=== PATIENT | female | born 1940 | race Caucasian/White ===

== ENCOUNTER 2020-07-21 13:12 | Outpatient (CLI) | payer MEDICARE, SELFPAY ==
--- NOTE | ~2020-07-21 | XR_ITS ---
XR cervical spine 4-5V DATE: 07/21/2020 14:42 INDICATION: Cervical pain, radiculopathy TECHNIQUE: AP, open-mouth, odontoid, lateral views COMPARISON: None FINDINGS: C1 and C2 are normally aligned and the odontoid process is intact. There is severe degenerative disc disease and almost 3 mm retrolisthesis at C3-4. There is approximately 2 mm anterolisthesis at C5-6. No fracture or dislocation or locked facet or prevertebral soft tissue swelling. There is degenerative change at the apophyseal joints throughout the cervical spine. IMPRESSION: Severe degenerative disc disease and approximately 3 mm retrolisthesis at C3-4 2 mm anterolisthesis at C5-6 Reviewed, dictated and finalized at location A. IMPRESSION: Severe degenerative disc disease and approximately 3 mm retrolisthe sis at C3-4 2 mm anterolisthesis at C5-6
== END 2020-07-21 13:13 | disposition home or self-care (01) ==
PROVIDERS: PCP Family Medicine; Visit Provider Family Medicine
DX: M47.22 Other spondylosis with radiculopathy, cervical region (principal); M50.31 Other cervical disc degeneration, high cervical region; M43.12 Spondylolisthesis, cervical region
CPT/HCPCS: 72050; 73030

== ENCOUNTER 2020-07-21 17:05 | Outpatient (CLI) | payer MEDICARE, SELFPAY ==
--- NOTE | ~2020-07-21 | XR_ITS ---
XR shoulder LT min 2V DATE: 07/21/2020 17:31 INDICATION: Left shoulder pain. No injury. TECHNIQUE: 4 views COMPARISON: None FINDINGS: No fracture or dislocation, periosteal reaction or bone destruction or abnormal soft tissue calcification. There is aortic arch calcification and mild aortic unfolding. IMPRESSION: No significant abnormality of the left shoulder Reviewed, dictated and finalized at location A.
== END 2020-07-21 17:06 | disposition home or self-care (01) ==
PROVIDERS: PCP Family Medicine; Visit Provider Physician Assistant
DX: M25.512 Pain in left shoulder (principal)
CPT/HCPCS: 73030

== ENCOUNTER 2020-10-21 11:33 | Outpatient (CLI) | payer MEDICARE, SELFPAY ==
--- NOTE | ~2020-10-21 | NM_ITS ---
EXAMINATION: NM parathyroid imaging w spect DATE: 10/21/2020 15:14 INDICATION: Hypercalcemia. TECHNIQUE: 19.9 mCi Tc99m sestamibi was administered intravenously. Anterior images of the neck were obtained immediately and at 2 hours. SPECT images of the neck were obtained. COMPARISON: None. FINDINGS: There is no focus of persistent activity in the area of the thyroid or mediastinum to sugge st parathyroid adenoma. IMPRESSION: 1. No evidence of a parathyroid adenoma. Reviewed, dictated and finalized at location B. 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
== END 2020-10-21 11:34 | disposition home or self-care (01) ==
PROVIDERS: PCP Family Medicine; Visit Provider Family Medicine
DX: E83.52 Hypercalcemia (principal)
CPT/HCPCS: 78071; A9500

== ENCOUNTER 2020-10-24 14:59 | Outpatient (CLI) | payer MEDICARE, SELFPAY ==
--- NOTE | ~2020-10-24 | XR_ITS ---
EXAMINATION: XR chest 2V 10/24/2020 15:26 INDICATION: Hypercalcemia. PROCEDURE: PA and lateral views of the chest COMPARISON: No prior studies for comparison. FINDINGS: The lungs are clear. The cardiomediastinal silhouette is within normal limits. There are no pleural effusions. There is no pneumothorax suspected. IMPRESSION: 1: NO ACUTE CARDIOPULMONARY DISEASE. Reviewed, dictated and finalized at location A. 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
== END 2020-10-24 15:00 | disposition home or self-care (01) ==
PROVIDERS: PCP Family Medicine; Visit Provider Family Medicine
DX: E83.52 Hypercalcemia (principal)
CPT/HCPCS: 71046

== ENCOUNTER → 2021-04-11 11:19 | Outpatient (CLI) | payer MEDICARE, SELFPAY ==
--- NOTE | ~2021-04-11 | XR_ITS ---
XR chest 2V DATE: 04/11/2021 11:56 INDICATION: Hypercalcemia TECHNIQUE: 2 views COMPARISON: 10/24/2020 PA and lateral chest FINDINGS: Heart size is normal. There is thoracic and abdominal aortic calcification. There is no hil ar or mediastinal enlargement. Bilateral hyperinflation. No pulmonary infiltrate or consolidation, pleural effusion or pulmonary vas cular congestion or pneumothorax is detected. IMPRESSION: Bilateral hyperinflation; otherwise no active cardiopulmonary disease Reviewed, dictated and finalized at location A. IMPRESSION: Bilateral hyperinflation; otherwise no active cardiopulmonary disea se
== END ==
PROVIDERS: PCP Family Medicine; Visit Provider Family Medicine
DX: E83.52 Hypercalcemia (principal)
CPT/HCPCS: 71046

== ENCOUNTER → 2021-05-31 10:43 | Outpatient (CLI) | payer MEDICARE, SELFPAY ==
--- NOTE | ~2021-05-31 | CT_ITS ---
EXAMINATION: CT abdomen pelvis w con DATE: 05/31/2021 11:21 INDICATION: Abnormal weight loss TECHNIQUE: Computed tomography (CT) of the abdomen and pelvis was performed with 100 cc Omnipaque 350 intravenous contrast. Automated exposure control and iterative reconstruction technique were employe d. Exam dose: 334.31 mGy-cm total exam DLP. COMPARISON: None. FINDINGS: Mild bilateral dependent lower lobe atelectasis Normal heart size. No pericardial or pleural effusion. The liver, spleen, pancreas, gallbladder, bile ducts, pancreatic duct, and adrenal glands are unremar kable. 6 mm lower pole left renal cyst. No urinary tract calculus or hydroureteronephrosis. Heterogeneous density and multiple calcifications in the uterus consistent with uterine fibroids, inc luding 2.3 cm right and 1.6 cm left probably calcified serosal uterine fibroids. There are numerous diverticula of left and right colon; no CT evidence of diverticulitis is noted. No bowel obstruction, bowel wall thickening, pneumatosis or intraperitoneal free air is detected. There is extensive calcification of the abdominal aorta but no aneurysm. No intraperitoneal or retrop eritoneal or pelvic mass lesion or adenopathy or ascites. Grade 1 anterolisthesis at L4-5 due to degenerative change at the apophyseal joints. No suspicious osteolytic or osteoblastic lesions are noted. IMPRESSION: 6 mm lower pole left renal cyst Multiple uterine fibroid Diverticulosis of left and right colon; no CT evidence of diverticulitis or bowel obstruction Reviewed, dictated and finalized at Location A. Reviewed, dictated and finalized at location A. IMPRESSION: 6 mm lower pole left renal cyst Multiple uterine fibroid Diverticulosis of left and right colon; no CT evidence of diverticulitis or bow el obstruction
[2021-05-31 11:04] LABS: Estimated Glomerular Filt Rate 43
== END ==
PROVIDERS: PCP Family Medicine; Visit Provider Family Medicine
DX: R63.4 Abnormal weight loss (principal)
CPT/HCPCS: 74177; Q9967

== ENCOUNTER 2022-05-06 17:26 | Observation (INO) | payer MEDICARE, SELFPAY ==
[2022-05-06] VITALS (15 sets, daily range): BP systolic 152–185; BP diastolic 62–82; PULSE 59–82; RESP 13–21; TEMP 36.1–36.6; O2SAT 98–100; BMI 20.8
--- NOTE | ~2022-05-06 | CT_ITS ---
EXAMINATION: CT brain wo con DATE: 05/06/2022 18:04 INDICATION: fall . TECHNIQUE: Computed tomography (CT) of the head was performed without intravenous contrast. The mA wa s adjusted according to patient size. Iterative reconstruction technique was employed. The dose-lengt h product was 529.67 mGy-cm. COMPARISON: None FINDINGS: No acute intracranial hemorrhage or extra-axial fluid collection. Prominent CSF density bifrontal ext ra-axial spaces, likely secondary to parenchymal volume loss and settling. No hydrocephalus, mass, or herniation. No acute ischemic infarct. Unremarkable dural venous sinus attenuation. No acute osseous abnormality. The aerated spaces are clear. Moderate-severe atrophy. Moderate chronic white matter change. Atherosclerotic intracranial calcifica tions. IMPRESSION: No acute intracranial process. Reviewed, dictated and finalized at location K.
--- NOTE | ~2022-05-06 | US_ITS ---
EXAMINATION: US carotid duplex BI DATE: 05/07/2022 10:11 INDICATION: Carotid bruits TECHNIQUE: Grayscale, color Doppler, and pulsed Doppler images of the cervical carotid arteries were obtained. The degree of vessel stenosis is placed in one of the following categories: normal, <50%, 5 0-69%, >=70% but less than near-occlusion, near-occlusion, or total occlusion. Note that percent sten osis relative to normal distal artery lumen diameter is indirectly measured from velocity measurement s as described by Sterling, et al. Radiology 2003; 229:340-346. COMPARISON: None. FINDINGS: RIGHT: The right common carotid artery (CCA) peak systolic velocity (PSV) is 65 cm/s. The right internal car otid artery (ICA) PSV is 71 cm/s. The right ICA end-diastolic velocity (EDV) is 22 cm/s. The right IC A/CCA PSV ratio is 1.1. Grayscale and color Doppler images yield an estimate of <50% diameter reducti on from plaque in the ICA. The external carotid artery (ECA) PSV is 59 cm/s. There is antegrade flow in the right vertebral artery. LEFT: The left CCA PSV is 70 cm/s. The left ICA PSV is 61 cm/s. The left ICA EDV is 15 cm/s. The left ICA/C CA PSV ratio is 0.9. Grayscale and color Doppler images yield an estimate of <50% diameter reduction from plaque in the ICA. The ECA PSV is 84 cm/s. There is antegrade flow in the left vertebral artery. IMPRESSION: 1. <50% stenosis in the right internal carotid artery. 2. <50% stenosis in the left internal carotid artery. Reviewed, dictated and finalized at location A.
--- NOTE | ~2022-05-06 | CT_ITS ---
Patient Name: Patient Name MR#: Patient MRN Accession#: Accession Numbers EXAMINATION: CTA brain carotid DATE: 05/07/2022 18:03 INDICATION: syncope TECHNIQUE: Computed tomographic angiography (CTA) of the head was performed without and with 100 mL O mnipaque-350 intravenous contrast. CTA of the neck was performed with intravenous contrast. The dose- length product was 1605.89 mGy-cm. Maximum intensity projection and volume rendered 3D-reconstruction s were created by the technologist on a separate workstation. COMPARISON: None. FINDINGS: CTA NECK: Aortic arch and proximal great vessels: Moderate arch calcifications, calcified plaque at the bifurca tion of the brachiocephalic artery, and the origin of the left subclavian. Right common carotid, carotid bifurcation, and internal carotid artery: Atherosclerosis-descibe if co mplex features:No significant minimal calcified and noncalcified plaque at the carotid bifurcation.Th ere is 0% stenosis of the proximal right internal carotid artery relative to normal distal artery lum en diameter (NASCET criteria). Left common carotid, carotid bifurcation, and internal carotid artery: Minimal calcified and noncalci fied plaque at the carotid bifurcation.There is 0% stenosis of the proximal left internal carotid art toni relative to normal distal artery lumen diameter (NASCET criteria). Vertebral arteries: Calcified plaque at the origin of the left vertebral artery, without significant stenosis. Vertebral arteries are codominant. Other findings: Severe degenerative disc disease at C3-4, with moderate central canal stenosis. CTA HEAD: No large vessel occlusion, aneurysm, high flow vascular malformation, nidus or extravasation. Atheros clerotic calcification in the cavernous carotids, without significant stenosis. 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 Focal mild and moderate stenoses present in the P2 segment of the right DELIVERY SUPERVISOR. CT brain: No acute large vessel infarct, intracranial hemorrhage, mass, or hydrocephalus. Stable prominent CSF density bifrontal extra-axial fluid collections. Moderate-severe atrophy. Moderate chronic white arline er change. Atherosclerotic intracranial calcifications. Bilateral lens replacements. IMPRESSION: 1. No large vessel occlusion. 2. No significant carotid stenosis. 3. origin of the right DELIVERY SUPERVISOR, with moderate focal stenoses in the P2 segment. Reviewed, dictated and finalized at location K. IMPRESSION: 1. No large vessel occlusion. 2. No significant carotid stenosis. 3. origin of the right DELIVERY SUPERVISOR, with moderate focal stenoses in the P2 segme nt.
--- NOTE | ~2022-05-06 | XR_ITS ---
EXAMINATION: XR chest 1V portable Exam Date/Time: 05/06/2022 17:45 CDT HISTORY: PT OVERHEATED TODAY AND FAINTED,HTN,TIA Comparison: 04/11/2021. RESULT: Lines, tubes, and devices: None. Lungs and pleura: Clear. Cardiomediastinal silhouette: Stable cardiomediastinal silhouette. Other: No acute osseous or upper abdominal finding. IMPRESSION: No acute cardiopulmonary process. Reviewed, dictated and finalized at location K.
--- NOTE | ~2022-05-06 | MR_ITS ---
EXAMINATION: MR brain/brain stem wo/w con DATE: 05/07/2022 17:50 INDICATION: syncope TECHNIQUE: Magnetic resonance imaging (MRI) of the brain and brainstem was performed without and with 12 mL MultiHance intravenous contrast. Sequences included sagittal and axial T1-weighted SE, axial d iffusion-weighted FS EPI ASSET, axial T2*-weighted GRE, axial T2-weighted FLAIR Propeller, and axial T2-weighted Propeller. Postcontrast axial and coronal T1-weighted SE was obtained. Apparent diffusion coefficient (ADC) maps were created. COMPARISON: CT brain 05/06/2022. FINDINGS: No abnormal restricted diffusion to suggest acute ischemic infarct. No MRI evidence of acute hemorrha ge or acute extra-axial collection. Redemonstration of the prominent right bifrontal CSF density extr a-axial spaces, likely secondary to volume loss and settling, or less likely chronic subdural hematom as. Small foci of susceptibility in the left basal ganglia likely related to calcifications. Mild foc i of T2 hyperintensity within the white matter, likely representing chronic small vessel disease. Mod erate atrophy. The ventricles are proportional to brain volume. Basal cisterns are patent. Flow voids are patent. Bilateral lens replacements. Trace left mastoid effusion. IMPRESSION: 1. No acute large vessel infarct. 2. No acute intracranial process. Reviewed, dictated and finalized at location K.
--- NOTE | 2022-05-06 17:41 | ECG_ITS ---
Measurements Intervals [place] Rate: 60 P: 40 MA: 154 QRS: -6 QRSD: 93 T: 10 QT: 434 QTc: 436 Interpretive Statements SINUS RHYTHM POOR R-WAVE PROGRESSION BORDERLINE ECG NO PREVIOUS ECG AVAILABLE FOR COMPARISON Electronically Signed On 05-07-2022 7:16:50 CDT by Raz Dillon M.D.
--- NOTE | 2022-05-06 17:48 | ED.GENADULT ---
HPI - General Adult General Chief complaint: Head Injury <Ken Aquino DO - Last Filed: 05/06/22 19:11> Stated complaint: syncope <Ken Aquino DO - Last Filed: 05/06/22 19:11> Time Seen by Provider: 05/06/22 17:31 <Ken Aquino DO - Last Filed: 05/06/22 19:11> Source: RN notes reviewed <Ken Aquino DO - Last Filed: 05/06/22 19:11> History of Present Illness HPI narrative: Patient presents to emergency department from home for syncope. Patient states that she was at a basketball game standing when she had a syncopal episode. Patient states that she had no symptoms prior to the syncopal episode she denies feeling any chest pain shortness of breath dizziness or any other symptoms patient fell and struck the right side of her head causing laceration right side of head. Patient is unsure of her last tetanus shot. At this time the patient has no complaints outside of her laceration she denies any fevers or chills <Ken Aquino DO - Last Filed: 05/06/22 19:11> Related Data Allergies/adverse reactions: Allergies Allergy/AdvReac Type Severity Reaction Status Date / Time No Known Allergies Allergy Unverified 01/02/22 08:58 <Ken Aquino DO - Last Filed: 05/06/22 19:11> Review of Systems Review of Systems: Gen.: Denies fevers or chills Eyes: Denies eye pain or visual change ENT: Denies congestion Respiratory: Denies shortness of breath or cough CV: See HPI GI: Denies abdominal pain nausea, emesis or diarrhea Musculoskeletal: Denies back pain or muscle pain Neuro: Denies numbness, tingling, weakness or focal weakness Skin: Reports laceration Except as documented, all other systems reviewed and negative <Ken Aquino DO - Last Filed: 05/06/22 19:11> PMFSH Past Medical History Medical History: Medical History Basal cell carcinoma (~01/2020) Carotid artery stenosis (~2014) CKD (chronic kidney disease), stage III History of melanoma (~1999) HTN (hypertension) 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 Lower extremity venous stasis Mild cognitive impairment Osteoarthritis of right knee Tear of meniscus of left knee TIA (transient ischemic attack) (~11/2014) <Ken Aquino DO - Last Filed: 05/06/22 19:11> Surgical History Surgical History: Surgical History History of arthroplasty of left knee (~2011) History of arthroplasty of right knee (~2014) History of delivery (~1967) vertical c-sxn <Ken Aquino DO - Last Filed: 05/06/22 19:11> Social History Social History: Social History Social History: Pt states that she has 3 cup of caffeine (tea) beverage daily; diet coke 1 c/d Smoking status: Never smoker Second hand tobacco smoke exposure: No Alcohol intake: never Substance use: never Substance use type: does not use Gender identity (if verbalized by the patient): Female Sexual Orientation (if Verbalized by the Patient): Straight or Heterosexual <Ken Aquino DO - Last Filed: 05/06/22 19:11> Exam Narrative: APPEARANCE: No acute distress, nontoxic, resting in bed EYES: EOMI HEENT: Normocephalic, 2.5 cm laceration over the right lateral eyebrow that is deep with mild venous bleeding no foreign body seen, the remainder the face is nontender Neck: Supple no midline tenderness palpation full range of motion of the neck without pain RESPIRATORY: No respiratory distress Clear to auscultation bilaterally with no rhonchi wheezing or rales. CARDIOVASCULAR: Regular rate and rhythm without murmurs rubs or gallops. ABDOMINAL: Soft, nontender, nondistended, no rebound or guarding MUSCULOSKELETAl: Moves all extremities. No clubbing, cyanosis or edema. NEURO: Awake and alert x 3( patient knows month but does not know year) following commands, speech normal, no f
--- NOTE | 2022-05-06 17:55 | PC.NURSE ---
pt. to ct
[2022-05-06 17:58] LABS: Basophils Absolute Auto 0.1 K/mm3 (0.0-0.1); Basophils Percent Auto 0.5 % (0.2-1.2); Eosinophils Percent Auto 0.4 % (0-4.4); Hemoglobin 12.6 g/dL (12.0-15.0); Immature Granulocyte Absolute 0.04 K/mm3 (0.00-0.031); Immature Granulocyte Percent A 0.4 % (0-0.5); Lymphocytes Absolute Auto 1.35 K/mm3 (0.9-3.2); Lymphocytes Percent Auto 12.4 % (18.3-44.2); Mean Corpuscular HGB Conc 32.3 g/dl (32-36); Mean Platelet Volume 11.5 fl (7.4-10.4); Monocytes Absolute Auto 0.6 K/mm3 (0.1-0.6); Monocytes Percent Auto 5.3 % (2.6-8.5); Neutrophils Absolute Auto 8.9 K/mm3 (1.3-6.7); Platelet Count Result 250 k/mm3 (150-375); Red Blood Count 3.94 M/mm3 (4.2-5.4); Red Cell Distribution Width 12.1 % (11.5-14.5); White Blood Count 10.9 K/mm3 (4.5-10.0)
[2022-05-06 18:25] LABS: Creatine Kinase 47 U/L (30-135)
[2022-05-06] MEDS: TETANUS,DIPHTHERIA,AC PERTUSSIS ADULT (0.5 ML) BOOSTRIX IM (18:30)
[2022-05-06 18:34] LABS: Appearance Urine Clear (Clear); Bilirubin Urine Negative (Negative); Blood Urine Negative (Negative); Color Urine Yellow (Yellow); Glucose Urine UA Negative (Negative); Ketones Urine Trace mg/dL (Negative); Leukocyte Esterase Ur Negative LEU/UL (Negative); Nitrate Urine Negative (Negative); Protein Urine Negative (Negative); Specific Grav Ur 1.025 (1.001-1.035); Urobilinogen Urine 0.2 mg/dL (<2.0); pH Urine 5.5 (5.0-9.0)
[2022-05-06 18:38] LABS: Troponin I < 0.012 ng/mL (0.000-0.034)
[2022-05-06 18:45] LABS: Alanine Aminotransferase 22 U/L (6-35); Albumin Level 4.5 g/dL (3.5-5.1); Alkaline Phosphatase 101 U/L (38-126); Anion Gap 4 mmol/L (8-16); Aspartate Amino Transferase 32 U/L (14-36); Bilirubin,Total 0.2 mg/dL (0.2-1.3); Blood Urea Nitrogen 23 mg/dL (7-17); Calcium 10.4 mg/dL (8.4-10.2); Carbon Dioxide 27 mmol/L (22-30); Chloride 105 mmol/L (98-107); Estimated CRCL calculation 28 ml/min; Estimated Glomerular Filt Rate 43; Glucose 96 mg/dL (65-110); Potassium 4.6 mmol/L (3.4-5.0); Sodium 136 mmol/L (137-145)
[2022-05-06 18:46] LABS: Mucus Urine Rare /lpf; RBC Urine 0-2 /hpf (0-2); Squamous Epithelial Cell Urine Rare /hpf (Few)
[2022-05-06 19:00] LABS: Add Urine Microscopic? YES
--- NOTE | 2022-05-06 19:00 | PM.IMHP ---
H&P: HPI History of Present Illness Date/Time: 05/06/22 19:00 Chief Complaint: Syncope. Narrative: This is a pleasant 81-year-old female with mild cognitive impairment, hypertension, chronic kidney disease, right carotid stenosis, and history of TIA who presented to the emergency department for evaluation after a syncopal episode. She had a syncopal episode while attending her grandson's indoor basketball game this afternoon. She does not seem to remember what happened and in fact she tells me that she was standing near a wall and she fell back and slid down the wall onto her buttocks. On arrival to the ER, however, she was noted to have trauma to her face and she sustained a laceration to the right forehead which had to be sutured. She does not recall feeling bad today nor does she recall having any prodrome will symptoms prior to the episode. At the time my evaluation she has no complaints and specifically denies headache, visual changes, focal weakness, paresthesias, facial droop, speech disturbances, lightheadedness, dizziness, chest pain, pleuritic pain, palpitations, shortness of breath, nausea, and vomiting. Her only concern is that of having to stay in the hospital for any length of time as she is going to [facility] in a couple of days to visit her grandson. Review of Systems Review of Systems: Twelve systems were reviewed. No recent cold or flu symptoms. No sick contacts. She has been eating and drinking as per usual. No nausea, vomiting, diarrhea, or dysuria. Except as documented, all other systems were reviewed and are negative. [facility] Past Medical History Medical History (Updated 05/06/22 @ 22:17 by Chanelle Rodriguez PA-C) Basal cell carcinoma (01/2020) Carotid artery stenosis (2014) Chronic kidney disease, stage 3 Hypertension Lower extremity venous stasis Melanoma (1999) Mild cognitive impairment Osteoarthritis of right knee Tear of meniscus of left knee Transient ischemic attack (11/2014) Surgical History Surgical History (Updated 05/06/22 @ 22:07 by Chanelle Rodriguez PA-C) History of arthroplasty of left knee (2011) History of arthroplasty of right knee (2014) History of delivery (1967) Family History Family History (Updated 05/06/22 @ 22:09 by Chanelle Rodriguez PA-C) Other No significant family history Social History Social History (Updated 05/06/22 @ 22:13 by Chanelle Rodriguez PA-C) Social History: Surrogate decision maker: Neida Butcher, daughter. Code status: Full code. Smoking status: Never smoker Second hand tobacco smoke exposure: No Alcohol intake: never Substance use: never Substance use type: does not use Spiritual care concerns: No Meds Home Medications and Allergies Home Medications Medication Instructions Recorded Confirmed Type metoprolol succinate 25 mg 25 mg PO DAILY #90 tabs 11/07/21 05/06/22 Rx tablet,extended release 24 hr donepezil 10 mg tablet (Aricept) 10 mg PO QAM 05/06/22 05/06/22 History Allergies Allergy/AdvReac Type Severity Reaction Status Date / Time No Known Allergies Allergy Unverified 01/02/22 08:58 Vital Signs Vital Signs - 24 hr 05/06/22 17:27 05/06/22 18:07 05/06/22 18:08 Temperature 97.9 F Pulse Rate 59 L 66 65 Respiratory Rate 18 Blood Pressure 152/63 H 166/68 H 174/62 H Pulse Oximetry 98 05/06/22 18:10 05/06/22 17:39 05/06/22 17:40 Temperature Pulse Rate 69 63 63 Respiratory Rate 17 19 Blood Pressure 167/82 H 179/63 H Pulse Oximetry 100 100 05/06/22 17:45 05/06/22 18:24 05/06/22 18:30 Temperature Pulse Rate 67 64 66 Respiratory Rate 21 H 17 17 Blood Pressure Pulse Oximetry 100 100 99 05/06/22 18:31 05/06/22 18:35 05/06/22 18:36 Temperature Pulse Rate 67 67 68 Respiratory Rate 17 13 16 Blood Pressure 172/76 H Pulse Oximetry 100 100 100 05/06/22 19:05 05/06/22 20:25 Temperature 97 F L Pulse Rate 67 71 Respiratory Rate 16 16 Blood Pres
[2022-05-06 23:46] LABS: Troponin I < 0.012 ng/mL (0.000-0.034)
[2022-05-07] VITALS (9 sets, daily range): BP systolic 140–153; BP diastolic 47–65; PULSE 59–68; RESP 16–18; TEMP 36.1–36.2; O2SAT 98–100
[2022-05-07 02:30] LABS: Basophils Absolute Auto 0.1 K/mm3 (0.0-0.1); Basophils Percent Auto 0.5 % (0.2-1.2); Eosinophils Absolute Auto 0.1 K/mm3 (0-0.3); Hematocrit 37.5 % (37.0-47.0); Hemoglobin 12.2 g/dL (12.0-15.0); Immature Granulocyte Absolute 0.01 K/mm3 (0.00-0.031); Immature Granulocyte Percent A 0.1 % (0-0.5); Lymphocytes Absolute Auto 2.42 K/mm3 (0.9-3.2); Lymphocytes Percent Auto 25.1 % (18.3-44.2); Mean Corpuscular HGB Conc 32.5 g/dl (32-36); Mean Corpuscular Hemoglobin 31.8 pg (26-34); Mean Corpuscular Volume 97.7 fl (80-100); Mean Platelet Volume 11.1 fl (7.4-10.4); Monocytes Absolute Auto 0.9 K/mm3 (0.1-0.6); Monocytes Percent Auto 9.3 % (2.6-8.5); Neutrophils Absolute Auto 6.2 K/mm3 (1.3-6.7); Platelet Count Result 239 k/mm3 (150-375); Red Blood Count 3.84 M/mm3 (4.2-5.4); Red Cell Distribution Width 12.1 % (11.5-14.5); White Blood Count 9.7 K/mm3 (4.5-10.0)
[2022-05-07 02:40] LABS: Anion Gap 3 mmol/L (8-16); Blood Urea Nitrogen 20 mg/dL (7-17); Calcium 9.9 mg/dL (8.4-10.2); Carbon Dioxide 26 mmol/L (22-30); Chloride 106 mmol/L (98-107); Estimated CRCL calculation 37 ml/min; Estimated Glomerular Filt Rate 53; Glucose 84 mg/dL (65-110); Magnesium 2.2 mg/dL (1.6-2.3); Potassium 4.3 mmol/L (3.4-5.0); Sodium 135 mmol/L (137-145)
[2022-05-07 02:55] LABS: Troponin I < 0.012 ng/mL (0.000-0.034)
[2022-05-07] MEDS: METOPROLOL SUCCINATE EXT REL 25 MG TABCR PO (08:33)
[2022-05-07] MEDS: DONEPEZIL HCL 10 MG TABLET PO (08:33)
--- NOTE | 2022-05-07 15:02 | PM.CNCAR ---
Assessment and Plan Assessment and plan (1) Syncope: Code(s): R55 - Syncope and collapse Status: Acute Plan This is an 81-year-old woman who experienced a syncopal episode yesterday while she was at her son's basketball game. The etiology of this is unknown at this time. She has not had any disturbances of her cardiac rhythm on telemetry and her 12 lead electrocardiogram is unremarkable. Her echocardiogram also shows no structural clues that would reveal an etiology of this. She has not had syncopal episodes previously. She is stable at this time and has an unremarkable cardiovascular exam. I believe she can be discharged for outpatient follow-up. With 1 episode of syncope we typically do not recommend ongoing rhythm monitoring or loop recorder implants. Certainly if this becomes a pattern then further evaluation of her rhythm is indicated. I told the patient and her daughter that I think it is reasonable for them to continue their plans for international travel to [place] they are not going anywhere where Healthcare is not available should she have problems. The chance of a serious arrhythmia seems unlikely based on her physical exam ECG and normal echocardiogram Raz Dillon MD [facility] History of Present Illness History of Present Illness Consult date/time: 05/07/22 15:02 Reason For Visit: Syncope, Facial Laceration Narrative: This is a very pleasant 81-year-old lady that I am seeing at the request of the hospitalist today because of a syncopal episode which occurred yesterday in after which she was admitted to the hospital for observation. The patient does not know of any cardiac trouble that she has ever had in the past. Her daughter is with her in the room and confirms this history. She was feeling in her usual state of good health when yesterday she was at her great grandson's basketball game and abruptly had a syncopal episode. Her daughter was standing beside her. She still states that she felt well did not have any feelings of lightheadedness dimming of her vision a palpitations or chest pain before losing consciousness she fell to the floor in the gymnasium striking her face on the ground and sustaining laceration above the right eye. She was brought to the emergency room. Her daughter states that she regained consciousness immediately and other than the laceration did not have any complaints upon arrival here. In the emergency room her electrocardiogram was completely normal. She was admitted to the hospital on telemetry. Her telemetry has also been unremarkable there have not been any pauses or Goldy arrhythmias of any kind. She had an echocardiogram done earlier today which was interpreted byDr Noguera as being essentially normal. In this setting I am seeing her in consultation. The patient has not had a syncopal episode in the past she did have an episode where she nearly lost consciousness many years ago while she was seated at the dinner table speaking with her . She was hospitalized briefly and was told that she they thought she had a TIA. She denies any knowledge of hypertension diabetes or dyslipidemia. She is taking a beta-shira and a low-dose metoprolol 25 mg a day which she states was started after the TIA. She thinks it was prescribed by a physician many years ago when she lived in [place]. The patient's daughter is questioning her stability/appropriateness to travel. They have international travel plans to go to [place] on a flight leaving Saturday of this week. They are visiting family out there. Review of Systems Constitutional: Constitutional: Reports no additional constitutional complaints Eyes: Eyes: Reports no additional eye complaints ENT: Reports system reviewed and no additional complaints, except as documented Cardiovascular: Cardiovascular: Reports no additional cardiovascular complaints Respiratory: Respiratory: Reports no additional respiratory
--- NOTE | 2022-05-07 16:42 | WPDNEURCNPN ---
Assessment and Plan Assessment and plan (1) Syncope: Code(s): R55 - Syncope and collapse Status: Acute Plan syncopal order the CTA of the brain and neck and also MRI to document any silent stroke discussed with the family once the reports are available further recommendation will be given Consult date: 05/07/22 Time Seen: 16:43 Reason for consult: syncope HPI: Franny Barth is a 81 year old female admitted to the hospital through the emergency room reportedly she was at a basketball game standing when she had an syncopal episode she had no symptom prior to the syncopal episode he gave no history of associated chest discomfort or difficulties in breathing or being dizzy patient is not known to be allergic to any medication. She does have ongoing history of carotid artery stenosis documented in 2014, chronic renal disease stage III, hypertension, mild cognitive impairment, and osteoarthritis of her right knee with history of TIA in the past she does not drink alcohol does not smoke and she is not known to be allergic to any medication, initial evaluation revealed her to have normal vital signs except blood pressure of 152/63 and normal routine lab, patient has been seen by the artificial marble worker as well considering only 1 episode of syncope ongoing rhythmic monitoring or loop recorder implant was not suggestive Review of Systems Review of Systems: All systems reviewed & are unremarkable except as noted in HPI and below PMFSH Past Medical History Medical History (Updated 05/06/22 @ 22:17 by Chanelle Rodriguez PA-C) Basal cell carcinoma (01/2020) Carotid artery stenosis (2014) Chronic kidney disease, stage 3 Hypertension Lower extremity venous stasis Melanoma (1999) Mild cognitive impairment Osteoarthritis of right knee Tear of meniscus of left knee Transient ischemic attack (11/2014) Surgical History Surgical History (Updated 05/06/22 @ 22:07 by Chanelle Rodriguez PA-C) History of arthroplasty of left knee (2011) History of arthroplasty of right knee (2014) History of delivery (1967) Family History Family History (Updated 05/06/22 @ 22:09 by Chanelle Rodriguez PA-C) Other No significant family history Social History Social History (Updated 05/06/22 @ 22:13 by Chanelle Rodriguez PA-C) Social History: Surrogate decision maker: Neida Butcher, daughter. Code status: Full code. Smoking status: Never smoker Second hand tobacco smoke exposure: No Alcohol intake: never Substance use: never Substance use type: does not use Spiritual care concerns: No Meds Home Medications and Allergies Home Medications Medication Instructions Recorded Confirmed Type metoprolol succinate 25 mg 25 mg PO DAILY #90 tabs 11/07/21 05/06/22 Rx tablet,extended release 24 hr donepezil 10 mg tablet (Aricept) 10 mg PO QAM 05/06/22 05/06/22 History Allergies Allergy/AdvReac Type Severity Reaction Status Date / Time No Known Allergies Allergy Unverified 01/02/22 08:58 Vital Signs Vital Signs - 24 hr 05/06/22 17:27 05/06/22 18:07 05/06/22 18:08 Temperature 36.6 C Pulse Rate 59 L 66 65 Respiratory Rate 18 Blood Pressure 152/63 H 166/68 H 174/62 H Pulse Oximetry 98 Oxygen Delivery 05/06/22 18:10 05/06/22 17:39 05/06/22 17:40 Temperature Pulse Rate 69 63 63 Respiratory Rate 17 19 Blood Pressure 167/82 H 179/63 H Pulse Oximetry 100 100 Oxygen Delivery 05/06/22 17:45 05/06/22 18:24 05/06/22 18:30 Temperature Pulse Rate 67 64 66 Respiratory Rate 21 H 17 17 Blood Pressure Pulse Oximetry 100 100 99 Oxygen Delivery 05/06/22 18:31 05/06/22 18:35 05/06/22 18:36 Temperature Pulse Rate 67 67 68 Respiratory Rate 17 13 16 Blood Pressure 172/76 H Pulse Oximetry 100 100 100 Oxygen Delivery 05/06/22 19:05 05/06/22 20:25 05/06/22 20:00 Temperature 36.1 C L Pulse Rate 67 71 82 Respiratory Rate 16 16 Blood Pressure 185/
--- NOTE | 2022-05-07 16:44 | PM.IMPN ---
Progress Note: A&P Assessment and Plan (1) Syncope: Code(s): R55 - Syncope and collapse Status: Acute Assessment and Plan: Patient denies prodrome prior to the episode. Head CT showed no acute findings. Carotid Doppler with <50% stenosis of the bilateral internal carotid arteries. Echocardiogram reviewed with normal ejection fraction, no significant valvular disease. She was monitored on telemetry overnight with out any evidence of dysrhythmias. EKG was unremarkable. She was seen in consultation by Cardiology and Neurology. No further cardiac workup indicated. CTA of the head and neck and brain MRI are pending. (2) Laceration of eyebrow, right: Code(s): S01.111A - Laceration without foreign body of right eyelid and periocular area, initial encounter Status: Acute Assessment and Plan: Sutured in the emergency department (four nylon sutures). Wound is well-approximated. No bleeding noted at the site. (3) Hypertension: Code(s): I10 - Essential (primary) hypertension Status: Acute Assessment and Plan: Blood pressures were reviewed and have been slightly elevated, may be worsened due to anxiety related to hospitalization. Seems improved today with last BP 147/49. Continue metoprolol succinate. (4) Chronic kidney disease, stage 3: Code(s): N18.30 - Chronic kidney disease, stage 3 unspecified Status: Acute Assessment and Plan: Creatinine is stable. Subjective Date/time seen: 05/07/22 16:44 Interval history: Date of service: 05/07/2022 Franny Barth is an 81-year-old female with a history of hypertension, CKD, mild cognitive impairment, and carotid artery stenosis who is seen in follow-up for syncope. Patient reports she is back to her baseline state of health at this time. Denies dizziness, lightheadedness, weakness. No nausea, vomiting, fever, chills, shortness breath, cough, chest pain, palpitations. Denies visual changes, speech changes. No dysphagia. Tolerating her diet. Denies headache. Review of Systems Review of Systems: All systems reviewed & are unremarkable except as noted in HPI and below Exam Narrative: General: Thin, well-appearing 81-year-old female, sitting up in bed, comfortable, NARD Neuro: awake, alert and oriented x4, speech clear, CN II-XII intact, strength 5/5 throughout, sensation intact, no pronator drift, bilateral guardian family member strength equal, able to perform rapid alternating movements, able to perform finger to nose HEENMT: normocephalic, atraumatic, EOMI, sclerae anicteric Respiratory: clear to auscultation bilaterally, nonlabored breathing Cardio: regular rate, regular rhythm with S1-S2 Abdomen: nondistended, normoactive bowel sounds, soft, nontender to palpation Extremities: no edema, erythema, or tenderness to palpation Skin: Laceration of right eyebrow with sutures in place, faint periorbital ecchymosis of the left eye, no rashes or lesions, warm and dry Psych: appropriate mood and affect, judgment and insight intact Objective Data Vital Signs Vital Signs: Vital Signs - 24 hr 05/06/22 17:27 05/06/22 18:07 05/06/22 18:08 Temperature 97.9 F Pulse Rate 59 L 66 65 Respiratory Rate 18 Blood Pressure 152/63 H 166/68 H 174/62 H Pulse Oximetry 98 Oxygen Delivery 05/06/22 18:10 05/06/22 17:39 05/06/22 17:40 Temperature Pulse Rate 69 63 63 Respiratory Rate 17 19 Blood Pressure 167/82 H 179/63 H Pulse Oximetry 100 100 Oxygen Delivery 05/06/22 17:45 05/06/22 18:24 05/06/22 18:30 Temperature Pulse Rate 67 64 66 Respiratory Rate 21 H 17 17 Blood Pressure Pulse Oximetry 100 100 99 Oxygen Delivery 05/06/22 18:31 05/06/22 18:35 05/06/22 18:36 Temperature Pulse Rate 67 67 68 Respiratory Rate 17 13 16 Blood Pressure 172/76 H Pulse Oximetry 100 100 100 Oxygen Delivery 05/06/22 19:05 05/06/22 20:25 05/06/22 20:00 Temperature 97 F L Pulse
--- NOTE | 2022-05-07 20:17 | PM.DS ---
DS: Admitting Diagnosis Discharge Date 05/07/22 Admitting Diagnosis Syncope DS: Discharge Diagnosis Discharge Diagnosis (1) Syncope: Code(s): R55 - Syncope and collapse Status: Acute Assessment and Plan: Patient denies prodrome prior to the episode. Head CT showed no acute findings. Carotid Doppler with <50% stenosis of the bilateral internal carotid arteries. Echocardiogram reviewed with normal ejection fraction, no significant valvular disease. She was monitored on telemetry overnight with out any evidence of dysrhythmias. EKG was unremarkable. Orthostatic vital signs negative. CTA of the head and neck with no large vessel occlusion, no significant carotid stenosis. Brain MRI showed no acute large vessel infarct and no acute intracranial process. She was seen in consultation by Cardiology and Neurology. No further cardiac or neurologic workup indicated. Most likely vasovagal syncope. Educated on appropriate hydration, avoiding prolonged heat exposure. (2) Laceration of eyebrow, right: Code(s): S01.111A - Laceration without foreign body of right eyelid and periocular area, initial encounter Status: Acute Assessment and Plan: Sutured in the emergency department (four nylon sutures). Wound is well-approximated. No bleeding noted at the site. Suture removal in 3-5 days. (3) Hypertension: Code(s): I10 - Essential (primary) hypertension Status: Acute Assessment and Plan: Blood pressures were reviewed and were slightly elevated, may have been worsened due to anxiety related to hospitalization. Seems improved with subsequent blood pressures in the 140s systolic (4) Chronic kidney disease, stage 3: Code(s): N18.30 - Chronic kidney disease, stage 3 unspecified Status: Acute Assessment and Plan: Creatinine is stable. DS: Summary Hospital Course Hospital Course: Date of admission: 05/06/2022 Date of discharge: 05/07/2022 Franny Barth is an 81-year-old female with a history of hypertension, CKD, mild cognitive impairment, and carotid artery stenosis who presented to the emergency department on 05/06/2022 after having a syncopal episode. She was standing up for quite a while in a hot [place] watching a basketball game when she fell to the ground and struck her head. She came to immediately after and did not have subsequent confusion. She denied any precipitating symptoms. On presentation to the ED, her vital signs were stable, CBC and BMP unremarkable, troponin negative, EKG with sinus rhythm, CXR no acute findings and head CT with no acute intracranial process. She was admitted to the hospitalist service for further evaluation and management. She was feeling back to her usual state of health at the time of my evaluation. She has international air travel scheduled to go to [place] on 05/09/2022. Given her pending travel, a consult to Neurology and Cardiology for evaluation to ensure there was no contraindications to travel. From a cardiac standpoint, it was determined to be reasonable to continue with plans as based on her cardiac evaluation, a chance for serious arrhythmia felt to be unlikely. She was also evaluated neurology who recommended CTA of the brain carotid and also MRI to ensure no silent stroke. These images were negative. Neurology recommended daily aspirin 81 mg daily. I also spoke with the patient's primary care provider to inform of the syncopal episode and plans for travel. Per her primary care provider, as long as Cardiology and Neurology felt comfortable with proceeding with travel, this was acceptable per PCP. Discussed avoiding prolonged standing, prolonged heat exposure, and maintaining appropriate hydration. Patient and daughter were educated on worrisome signs and symptoms for which to return. Patient was very eager for discharge home. She was discharged in hemodynamically stable condition on 05/07/2022. She should fol
--- NOTE | 2022-05-07 22:21 | ECHO_ITS ---
Patient Info Name: Franny Barth Age: 81 years : 1940 Gender: Female Ht: 66 in Wt: 128 lbs BSA: 1.64 m2 HR: 56 bpm BP: 153 / 60 mmHg Technical Quality: Good Exam Date: 05/07/2022 11:35 AM Exam Location: [facility] Patient Status: Inpatient Admit Date: 05/06/2022 Staff Ordering Physician: Chanelle Rodriguez PA-C Plant Operations Coordinator: Saadia Jurado RDCS Attending Provider: Allyssa Dixon PA-C Referring Physician: Jennifer NAGEL; Exam Type: CA echo doppler color flow Study Info Indications R55 - Syncope and collapse Complete two-dimensional, color flow and Doppler transthoracic echocardiogram is performed. Summary 1. Complete two-dimensional, color flow and Doppler transthoracic echocardiogram is performed. 2. Left ventricular chamber dimension is normal. 3. Left ventricular systolic function is normal, estimated at 60-65%. 4. There is mildly increased left ventricular wall thickness. 5. The left ventricular diastolic function is grade I diastolic dysfunction. 6. E/e' 9 is minimally elevated. 7. Left atrial chamber dimension is mildly enlarged. 8. There is mild aortic valve sclerosis. 9. There is trace tricuspid valve regurgitation. 10. No pulmonary hypertension, estimated pulmonary arterial systolic pressure is 32 mmHg. Left Ventricle E/e' 9 is minimally elevated. Left ventricular chamber dimension is normal. Left ventricular systolic function is normal, estimated at 60-65%. There is mildly increased left ventricular wall thickness. The left ventricular diastolic function is grade I diastolic dysfunction. Right Ventricle Right ventricular chamber dimension is normal. Right ventricular systolic function is normal. Left Atria Left atrial chamber dimension is mildly enlarged. Right Atria Right atrial chamber dimension is normal. Aortic Valve The aortic valve is trileaflet. There is mild aortic valve sclerosis. There is no aortic valve stenosis. There is no aortic valve regurgitation. Pulmonic Valve There is no pulmonic regurgitation. Mitral Valve There is no mitral valve stenosis. There is no mitral valve regurgitation. Tricuspid Valve There is trace tricuspid valve regurgitation. No pulmonary hypertension, estimated pulmonary arterial systolic pressure is 32 mmHg. Pericardium/Pleural There is no pericardial effusion. Inferior Vena Cava Normal inferior vena cava with >50% collapse upon inspiration consistent with normal right atrial pressure, 5 mmHg. Aorta The aortic root size at the sinus of Valsalva is normal. Left Ventricular Outflow Tract Name Value Normal LVOT 2D LVOT Diameter 1.9 cm LVOT Doppler LVOT Peak Gradient 4 mmHg LVOT Mean Gradient 2 mmHg LVOT VTI 23 cm LVOT VTI/AV VTI Ratio 0.9 LVOT Stroke Volume 63 ml LVOT CO 3.7 l/min LVOT CI 2.2 l/min/m2 Pulmonic Valve
== END 2022-05-07 20:38 | disposition home or self-care (01) ==
LOC: ANHED 19:12 → ANH3MEDSUR 19:36
PROVIDERS: Physician Assistant; Admitting Provider Family Medicine; Emergency Provider Emergency Medicine; PCP Family Medicine; Visit Provider Physician Assistant
DX: R55 Syncope and collapse (principal); S01.111A Laceration without foreign body of right eyelid and periocular area, initial encounter; N18.30 Chronic kidney disease, stage 3 unspecified; I12.9 Hypertensive chronic kidney disease with stage 1 through stage 4 chronic kidney disease, or unspecified chronic kidney disease; Z85.820 Personal history of malignant melanoma of skin; Z86.73 Personal history of transient ischemic attack (TIA), and cerebral infarction without residual deficits; Z96.653 Presence of artificial knee joint, bilateral; G31.84 Mild cognitive impairment of uncertain or unknown etiology
CPT/HCPCS: 12011; 36415; 70450; 70496; 70498; 70553; 71045; 80048; 80053; 81001; 82550; 83735; 84484; 85025; 90471; 90715; 93005; 93306; 93880; 97161; 97165; 99285; A9270; A9577; G0378; Q9967

== ENCOUNTER 2022-07-04 08:03 | Outpatient (CLI) | payer MEDICARE, SELFPAY ==
[2022-07-04 18:44] LABS: Hematocrit 36.6 % (37.0-47.0); Hemoglobin 11.9 g/dL (12.0-15.0); Mean Corpuscular HGB Conc 32.5 g/dl (32-36); Mean Corpuscular Hemoglobin 32.1 pg (26-34); Mean Corpuscular Volume 98.7 fl (80-100); Mean Platelet Volume 12.1 fl (7.4-10.4); Platelet Count Result 230 k/mm3 (150-375); Red Blood Count 3.71 M/mm3 (4.2-5.4); Red Cell Distribution Width 12.3 % (11.5-14.5); White Blood Count 7.8 K/mm3 (4.5-10.0)
[2022-07-04 19:11] LABS: Appearance Urine Clear (Clear); Bilirubin Urine Negative (Negative); Blood Urine Negative (Negative); Color Urine Yellow (Yellow); Glucose Urine UA Negative (Negative); Ketones Urine Negative (Negative); Leukocyte Esterase Ur Negative LEU/UL (NEGATIVE); Nitrate Urine Negative (Negative); Protein Urine Trace mg/dL (Negative); Specific Grav Ur 1.025 (1.001-1.035); Urobilinogen Urine 0.2 mg/dL (<2.0)
[2022-07-04 19:24] LABS: Bacteria Urine Trace /hpf; Mucus Urine Rare /lpf; Squamous Epithelial Cell Urine Occasional /hpf (Few); WBC Urine 0-3 /hpf (0-3)
[2022-07-04 19:30] LABS: Add Urine Microscopic? YES
[2022-07-04 20:12] LABS: Alanine Aminotransferase 14 U/L (6-35); Alkaline Phosphatase 83 U/L (38-126); Anion Gap 7 mmol/L (8-16); Aspartate Amino Transferase 32 U/L (14-36); Bilirubin,Total 0.4 mg/dL (0.2-1.3); Blood Urea Nitrogen 21 mg/dL (7-17); Calcium 9.9 mg/dL (8.4-10.2); Carbon Dioxide 27 mmol/L (22-30); Chloride 105 mmol/L (98-107); Cholesterol 161 mg/dL (0-200); Estimated Glomerular Filt Rate 43; Glucose 87 mg/dL (65-110); HDL Direct 57 mg/dL; Potassium 3.9 mmol/L (3.4-5.0); Sodium 139 mmol/L (137-145); Triglycerides 81 mg/dL (<150)
[2022-07-04 20:23] LABS: LDL Cholesterol Direct 65 mg/dL
== END 2022-07-04 08:04 | disposition home or self-care (01) ==
LOC: ANHGOSHLAB 08:10
PROVIDERS: PCP Family Medicine; Visit Provider Family Medicine
DX: I12.9 Hypertensive chronic kidney disease with stage 1 through stage 4 chronic kidney disease, or unspecified chronic kidney disease (principal); N18.30 Chronic kidney disease, stage 3 unspecified; E78.5 Hyperlipidemia, unspecified; I10 Essential (primary) hypertension; Z00.00 Encounter for general adult medical examination without abnormal findings
CPT/HCPCS: 36415; 80053; 80061; 81001; 84443; 85027

== ENCOUNTER 2023-01-10 12:33 | Outpatient (CLI) | payer MEDICARE, SELFPAY ==
[2023-01-11 09:15] LABS: Kit Draw Collected
== END 2023-01-10 12:34 | disposition home or self-care (01) ==
LOC: ANHGOSHLAB 12:36
PROVIDERS: PCP Family Medicine; Visit Provider Family Medicine
DX: I12.9 Hypertensive chronic kidney disease with stage 1 through stage 4 chronic kidney disease, or unspecified chronic kidney disease (principal)
CPT/HCPCS: 36415

== ENCOUNTER 2024-08-04 09:43 | Outpatient (CLI) | payer MEDICARE, SELFPAY ==
[2024-08-04 13:23] LABS: Hematocrit 40.6 % (37.0-47.0); Hemoglobin 12.9 g/dL (12.0-15.0); Mean Corpuscular HGB Conc 31.8 g/dl (32-36); Mean Corpuscular Hemoglobin 32.2 pg (26-34); Mean Corpuscular Volume 101.2 fl (80-100); Mean Platelet Volume 12.6 fl (7.4-10.4); Platelet Count Result 251 k/mm3 (150-375); Red Blood Count 4.01 M/mm3 (4.2-5.4); Red Cell Distribution Width 11.9 % (11.5-14.5); White Blood Count 9.5 K/mm3 (4.5-10.0)
[2024-08-04 13:27] LABS: Add Urine Microscopic? YES; Appearance Urine Clear (Clear); Bacteria Urine None Seen /hpf; Bilirubin Urine Negative (Negative); Blood Urine Negative (Negative); Color Urine Yellow (Yellow); Glucose Urine UA Negative (Negative); Ketones Urine Trace mg/dL (Negative); Leukocyte Esterase Ur Negative LEU/UL (Negative); Nitrate Urine Negative (Negative); Non Pathogenic Casts 0-2; Protein Urine Trace mg/dL (Negative); RBC Urine 0-2 /hpf (0-2); Specific Grav Ur 1.022 (1.001-1.035); Squamous Epithelial Cell Urine None Seen /hpf (Few); WBC Urine 0-5 /hpf (0-3); pH Urine 5.5 (5.0-9.0)
[2024-08-04 14:38] LABS: Alanine Aminotransferase 17 U/L (6-35); Albumin Level 4.1 g/dL (3.5-5.1); Alkaline Phosphatase 96 U/L (38-126); Anion Gap 7 mmol/L (4-12); Aspartate Amino Transferase 72 U/L (14-36); Bilirubin,Total 0.5 mg/dL (0.2-1.3); Blood Urea Nitrogen 22 mg/dL (7-17); Calcium 10.5 mg/dL (8.4-10.2); Carbon Dioxide 28 mmol/L (22-30); Chloride 99 mmol/L (98-107); Cholesterol 154 mg/dL (0-200); Estimated Glomerular Filt Rate 36; Glucose 82 mg/dL (65-110); HDL Direct 53 mg/dL; Potassium 4.6 mmol/L (3.4-5.0); Sodium 134 mmol/L (137-145); Triglycerides 109 mg/dL (<150)
[2024-08-04 14:49] LABS: LDL Cholesterol Direct 67 mg/dL
== END 2024-08-04 09:44 | disposition home or self-care (01) ==
PROVIDERS: PCP Family Medicine; Visit Provider Family Medicine
DX: C44.91 Basal cell carcinoma of skin, unspecified (principal); I12.9 Hypertensive chronic kidney disease with stage 1 through stage 4 chronic kidney disease, or unspecified chronic kidney disease; N18.30 Chronic kidney disease, stage 3 unspecified; R53.83 Other fatigue; Z00.00 Encounter for general adult medical examination without abnormal findings; G31.84 Mild cognitive impairment of uncertain or unknown etiology
CPT/HCPCS: 36415; 80053; 80061; 81001; 84443; 85027